=== PATIENT | female | born 1990 | race Two or more races ===

== ENCOUNTER 2019-10-05 10:11 | Day surgery (SDC) | payer MEDICAID ==
[~2019-10-05] VITALS: Ht 165.1 cm; Wt 70.0 kg
[2019-10-05 12:30] VITALS: BP 125/65
[2019-10-05 12:30] LABS: BASOPHILS % 0.8 % (0.0-2.0); EOSINOPHILS % 4.4 % (0.0-5.0); HEMATOCRIT. 43.2 % (36.0-48.0); HEMOGLOBIN. 14.8 g/dL (12.0-16.0); LYMPHOCYTES % 33.1 % (20.0-50.0); MEAN CORPUSCULAR HEMOGLOBIN 31.8 pg (28.0-32.0); MEAN CORPUSCULAR VOLUME 92.9 fL (81.0-99.0); MEAN PLATELET VOLUME 9.9 fl (7.4-10.4); MONOCYTES % 5.1 % (2.0-8.0); NEUTROPHILS % 56.6 % (40.0-76.0); PLATELET 239 x1000/uL (130-400); RED BLOOD CELL COUNT 4.65 mill/uL (4.2-5.4); RED CELL DISTRIBUTION WIDTH 13.5 % (11.6-14.6)
[2019-10-05 12:43] LABS: PARTIAL THROMBOPLASTIN TIME 27.5 sec (23.4-31.0); PROTHROMBIN TIME 10.5 sec (9.6-11.0)
[2019-10-05 12:45] LABS: CHLORIDE 108 mEq/L (98-107)
[2019-10-05] MEDS ORDERED: LIDOCAINE HCL/PF 2% 20 MG/ML 10ML VIAL ONE (12:56)
[2019-10-05] MEDS ORDERED: CIPROFLOXACIN 0.3% OPHTH SOLN 2.5ML ONE (12:56)
[2019-10-05] MEDS ORDERED: BUPIVACAINE HCL/PF 0.75% (7.5MG/ML) 10ML ONE (12:56)
[2019-10-05] MEDS ORDERED: BALANCED SALT IRRIG SOLN 15ML ONE (12:56)
[2019-10-05] MEDS ORDERED: TETRACAINE 0.5% OPHTH DROPS 4ML ONE (12:56)
[2019-10-05] MEDS ORDERED: PREDNISOLONE ACETATE 1% OPHTH DROPS 5ML ONE (12:56)
[2019-10-05 13:06] LABS: HCG SCREEN NEGATIVE
== END 2019-10-05 15:20 | disposition home or self-care (01) ==
LOC: ER 10:11 → OR 12:25 → ER 13:00 → OR 15:20
PROVIDERS: ATTEND Ophthalmology
DX: T15.12XA Foreign body in conjunctival sac, left eye, initial encounter (principal); Z79.899 Other long term (current) drug therapy; X58.XXXA Exposure to other specified factors, initial encounter; Y93.89 Activity, other specified; Y92.89 Other specified places as the place of occurrence of the external cause; Y99.8 Other external cause status
CPT/HCPCS: 36415; 65210; 80053; 81025; 84703; 85025; 85610; 85730; 88300; 93005; 99284; J3490